=== PATIENT | female | born 2000 | race Caucasian/White ===

== ENCOUNTER 2019-09-17 19:25 | Emergency (ER) | payer OTHER, SELFPAY ==
--- NOTE | 2019-09-17 19:36 | DI.US.S_ITS ---
PROCEDURE: US OB >= 14 WEEKS FETUS INDICATIONS: 19 weeks EGA with bleeding and cramping OUTSIDE/PRIOR DATING DATA: Last menstrual period (LMP): 05/02/19. LMP-based estimated date of delivery (BERNIE): 02/06/20. First dating scan (date and location): Not available. Estimated date of delivery (BERNIE) from first dating scan: Not available. TECHNIQUE: Real-time scanning was performed of the fetus, with image documentation and biometric measurements. Endovaginal scanning: Deferred COMPARISON: None. FINDINGS: General: A single living intrauterine gestation is present. Presentation: Vertex. Placenta: Placental position is anterior, without previa. No evidence for abruption. Amniotic fluid index: Subjectively normal. heart rate: 141 beats per minute. Maternal cervical canal: 2.8 cm long. Normal lower limit is 2.5 cm. Limited images of the maternal kidneys appear normal without significant hydronephrosis or perinephric fluid. Maternal adnexa is normal without obvious mass or fluid. IMPRESSION: 1. Single living intrauterine . 2. Closed cervix within normal limits for length. 3. Anterior placenta without previa or abruption. Dictated by: Hanny Araya M.D. on 09/17/2019 at 21:16 Approved by: Hanny Araya M.D. on 09/17/2019 at 21:21
[2019-09-17 19:40] VITALS: BP 132/86; PULSE 89; RESP 14; TEMP 36.7; O2SAT 100; BMI 22.3
--- NOTE | 2019-09-17 19:58 | ED_ITS ---
HPI - General Adult General Chief complaint: OB/Uterine Contractions Stated complaint: almost 20 weeks , spotting, cramping Time Seen by Provider: 09/17/19 19:35 Source: patient Mode of arrival: Ambulatory Limitations: no limitations History of Present Illness HPI narrative: 19-year-old at approximately 20 weeks EGA here for evaluation of cramping lower back pain. Denies any vaginal bleeding. Has a confirmed intrauterine . States the symptoms have been going on for the past several weeks adjust worsening over the past day or so. Has not tried anything for the symptoms prior to arrival Related Data Allergies Allergy/AdvReac Type Severity Reaction Status Date / Time amoxicillin [From Augmentin] Allergy Verified 09/17/19 19:40 clavulanic acid Allergy Verified 09/17/19 19:40 [From Augmentin] Review of Systems Constitutional Constitutional: Denies fever(s) Cardiovascular Cardiovascular: Denies chest pain and Denies dyspnea Respiratory Respiratory: Denies dyspnea Gastrointestinal Gastrointestinal: Reports cramping Genitourinary Genitourinary: Denies dysuria and Denies pelvic pain Musculoskeletal Musculoskeletal: Reports back pain Integumentary/Breasts Skin/Breast: Denies lesions and Denies rash Neurologic Neurologic: Denies behavioral changes Psychiatric Psychiatric: Denies behavioral changes Hematologic/Lymphatic Hematologic/Lymphatic: Denies easy bleeding and Denies easy bruising Patient History Medical History Healthy adult (Acute) Social History Smoking Status: Unknown if ever smoked Smoking Status: Unknown if ever smoked alcohol intake frequency: other Substance Use Type: does not use Exam Initial Vital Signs Initial Vital Signs: Vital Signs Temperature 98.0 F 09/17/19 19:40 Pulse Rate 89 09/17/19 19:40 Respiratory Rate 14 09/17/19 19:40 Blood Pressure 132/86 09/17/19 19:40 Pulse Oximetry 100 09/17/19 19:40 Const General: cooperative, healthy appearing, comfortable and well developed Resp Effort & Inspection: normal respiratory effort Cardio Rate: regular rate Skin Lesions: no lesions Rashes: no rashes Neuro General: alert and awake Cognition: normal cognition Speech: speech normal Extrem General: normal to inspection Psych Appearance: grossly normal and well kempt Course Orders Ordered: ED Orders 09/17/19 19:36 US OB limited Stat 09/17/19 20:38 ABO RH Type Stat Basic Metabolic Panel Stat Complete Blood Count AUTO DIFF Stat Vital Signs Vital signs: Vital Signs - 8 hr 09/17/19 19:40 09/17/19 21:47 Temperature 98.0 F Pulse Rate 89 72 Respiratory Rate 14 Blood Pressure 132/86 99/60 Pulse Oximetry 100 100 Medical Decision Making Lab Data Lab results reviewed: Yes I reviewed the patient's lab results. Result diagrams: 09/17/19 20:38 09/17/19 20:38 Labs: Lab Results 09/17/19 09/17/19 09/17/19 Range/Units 20:38 20:38 20:38 WBC 9.6 (4.5-11.0) X10^3/uL RBC 4.03 (4.0-5.2) X10^6/uL Hgb 12.2 (12.0-16.0) g/dL Hct 34.7 L (36-46) % MCV 86.0 (80-100) fL MCH 30.4 (26-34) PG MCHC 35.3 (30-36) % RDW 13.4 (11.6-14.8) % Plt Count 188 (150-400) X10^3/uL Neut % (Auto) 68.0 (50-75) % Lymph % (Auto) 23.1 L (25-40) % [place] % (Auto) 7.4 (3-14) % Eos % (Auto) 1.2 L (2-4) % Baso % (Auto) 0.3 (0-2) % Neut # (Auto) 6600 (1173-0100) /uL Lymph # (Auto) 2200 (3320-2457) /uL [place] # (Auto) 700 (0-900) /uL Eos # (Auto) 100 (0-450) /uL Baso # (Auto) 0 (0-100) /uL Sodium 135 L (137-145) mmol/L Potassium 3.6 (3.4-5.1) mmol/L Chloride 104 (98-107) mmol/L Carbon Dioxide 24 (22-32) mmol/L BUN 14 (7-17) mg/dL Creatinine 0.60 (0.52-1.04) mg/dL Estimated GFR > 60.0 (>60) mL/min BUN/Creatinine Ratio 23.3 H (6-22) Glucose 76 (70-100) mg/dL Calcium 9.1 (8.4-10.2) mg/dL Blood Type A Positive Urine Dip Bedside Urine Glucose Negative Bedside Urine Bilirubin - Negative Bedside Urine Ketone - Negative Urine Specific [place] 1.015 Bedside Urine Occult Blood - Negative Bedside Urine pH 6.5 Bedside Urine Protein - Negative Bedside Urine Urobilinogen - Negative Bedside Urine Nitrite - Negative Bedside Urine Leukocytes - Negative Esterase Point of care testing: Urine Dip Bedside Urine Glucose Negative Bedside Urine Bilirubin - Negative Bedside Urine Ketone - Negative Urine Specific [place] 1.015 Bedside Urine Occult Blood - Negative Bedside Urine pH 6.5 Bedside Urine Protein - Negative Bedside Urine Urobilinogen - Negative Bedside Urine Nitrite - Negative Bedside Urine Leukocytes - Negative Esterase Imaging Data US - abdomen: Radiologist's impression: [address] [address] Ultrasound Report Signed Patient: Jerri Timmons GMR#: [id number] : 2000Acct:[id number] Age/Sex: 18 / FDate of Service: 09/17/19 Loc: ED Accession Number: [id number] Procedure: US OB limited Ordering Provider: Pablo Jones D.O. PROCEDURE: US OB >= 14 WEEKS FETUS INDICATIONS: 19 weeks EGA with bleeding and cramping OUTSIDE/PRIOR DATING DATA: Last menstrual period (LMP): 05/02/19. LMP-based estimated date of delivery (BERNIE): 02/06/20. First dating scan (date and location): Not available. Estimated date of delivery (BERNIE) from first dating scan: Not available. TECHNIQUE: Real-time scanning was performed of the fetus, with image documentation and biometric measurements. Endovaginal scanning: Deferred COMPARISON: None. FINDINGS: General: A single living intrauterine gestation is present. Presentation: Vertex. Placenta: Placental position is anterior, without previa. No evidence for abruption. Amniotic fluid index: Subjectively normal. heart rate: 141 beats per minute. Maternal cervical canal: 2.8 cm long. Normal lower limit is 2.5 cm. Limited images of the maternal kidneys appear normal without significant hydronephrosis or perinephric fluid. Maternal adnexa is normal without obvious mass or fluid. IMPRESSION: 1. Single living intrauterine . 2. Closed cervix within normal limits for length. 3. Anterior placenta without previa or abruption. Dictated by: Hanny Araya M.D. on 09/17/2019 at 21:16 Approved by: Hanny Araya M.D. on 09/17/2019 at 21:21 MDM Narrative Medical decision making narrative: Rh positive. No vaginal bleeding. Single live intrauterine noted on bedside ultrasound. Urine unremarkable. Labs unremarkable. Hold on further workup for now. I did discuss this with the patient. She was given return precautions and follow-up instructions. She expressed understanding and agreement with plan. Discharge Plan Departure Patient Disposition: Home Clinical Impression: Abdominal cramping affecting Discharge Date/Time: 09/17/19 21:47 Instructions: Common Discomforts and Bodily Changes During Activity Restrictions/Additional Instructions: Keep all of your scheduled medical appointments. Return to the emergency department for any new or worsening symptoms
[2019-09-17 20:50] LABS: Add Manual Diff / Slide Review NO; Basophils Absolute Auto 0 /uL (0-100); Basophils Percent Auto 0.3 % (0-2); Eosinophils Absolute Auto 100 /uL (0-450); Eosinophils Percent Auto 1.2 % (2-4); Hematocrit 34.7 % (36-46); Hemoglobin 12.2 g/dL (12.0-16.0); Lymphocytes Absolute Auto 2200 /uL (1100-4500); Lymphocytes Percent Auto 23.1 % (25-40); Mean Corpuscular HGB Conc 35.3 % (30-36); Mean Corpuscular Hemoglobin 30.4 PG (26-34); Monocytes Absolute Auto 700 /uL (0-900); Monocytes Percent Auto 7.4 % (3-14); Neutrophils Absolute Auto 6600 /uL (1500-7000); Platelet Count 188 X10^3/uL (150-400); Red Blood Cell Count 4.03 X10^6/uL (4.0-5.2); Red Cell Distribution Width 13.4 % (11.6-14.8); White Blood Cell Count 9.6 X10^3/uL (4.5-11.0)
[2019-09-17 21:02] LABS: BUN Creatinine Ratio 23.3 (6-22); Blood Urea Nitrogen 14 mg/dL (7-17); Calcium 9.1 mg/dL (8.4-10.2); Carbon Dioxide 24 mmol/L (22-32); Chloride 104 mmol/L (98-107); Estimated Glomerular Filt Rate > 60.0 mL/min (>60); Glucose 76 mg/dL (70-100); HEMOLYSIS < 15 (0-50); Potassium 3.6 mmol/L (3.4-5.1); Sodium 135 mmol/L (137-145)
[2019-09-17 21:47] VITALS: BP 99/60; PULSE 72; O2SAT 100
== END 2019-09-17 21:47 | disposition home or self-care (01) ==
PROVIDERS: Emergency Provider Emergency Medicine
DX: O26.892 Other specified pregnancy related conditions, second trimester (principal); R10.9 Unspecified abdominal pain; M54.5 Low back pain; Z3A.19 19 weeks gestation of pregnancy
CPT/HCPCS: 36415; 76815; 80048; 81003; 85025; 86900; 86901; 99284

== ENCOUNTER 2019-10-28 10:57 | Emergency (ER) | payer OTHER, SELFPAY ==
[2019-10-28 11:11] VITALS: BP 104/65; PULSE 89; RESP 16; TEMP 36.7; O2SAT 100; BMI 23.2
[2019-10-28 11:24] VITALS: BP 103/62; PULSE 81; RESP 16; O2SAT 99
[2019-10-28] MEDS: SODIUM CHLORIDE 0.9% 1,000 ML 1000 ML IV (11:29)
[2019-10-28 11:33] LABS: Alanine Aminotransferase 15 IU/L (<35); Albumin 3.4 g/dL (3.5-5.0); Albumin Globulin Ratio 1.2 (1.0-2.8); Alkaline Phosphatase 63 U/L (38-126); Aspartate Aminotransferase 23 IU/L (14-36); BUN Creatinine Ratio 18.3 (6-22); Bilirubin Total 0.2 mg/dL (0.2-1.3); Blood Urea Nitrogen 11 mg/dL (7-17); Calcium 9.2 mg/dL (8.4-10.2); Carbon Dioxide 21 mmol/L (22-32); Chloride 109 mmol/L (98-107); Estimated Glomerular Filt Rate > 60.0 mL/min (>60); Globulin 2.8 g/dL (1.7-4.1); Glucose 71 mg/dL (70-100); HEMOLYSIS 22 (0-50); Potassium 3.7 mmol/L (3.4-5.1); Sodium 137 mmol/L (137-145); Total Protein 6.2 g/dL (6.3-8.2)
[2019-10-28 11:37] LABS: Add Manual Diff / Slide Review NO; Basophils Absolute Auto 0 /uL (0-100); Basophils Percent Auto 0.2 % (0-2); Eosinophils Absolute Auto 100 /uL (0-450); Eosinophils Percent Auto 0.6 % (2-4); Hematocrit 32.8 % (36-46); Hemoglobin 11.9 g/dL (12.0-16.0); Lymphocytes Absolute Auto 1400 /uL (1100-4500); Mean Corpuscular HGB Conc 36.2 % (30-36); Mean Corpuscular Hemoglobin 31.6 PG (26-34); Mean Corpuscular Volume 87.1 fL (80-100); Monocytes Absolute Auto 500 /uL (0-900); Monocytes Percent Auto 5.8 % (3-14); Neutrophils Absolute Auto 6800 /uL (1500-7000); Neutrophils Percent Auto 77.4 % (50-75); Platelet Count 180 X10^3/uL (150-400); Red Blood Cell Count 3.76 X10^6/uL (4.0-5.2); Red Cell Distribution Width 13.6 % (11.6-14.8); White Blood Cell Count 8.8 X10^3/uL (4.5-11.0)
--- NOTE | 2019-10-28 11:50 | ED_ITS ---
HPI - Syncope General Chief Complaint: Syncope Stated Complaint: dizzy and fainted Time Seen by Provider: 10/28/19 11:44 Source: patient Mode of arrival: Family Vehicle Limitations: no limitations History of Present Illness HPI narrative: Patient is a 19-year-old female currently 26 weeks presenting after a near syncopal episode. 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 She had no chest pain or heart palpitations. No weakness numbness or tingling. He denies any abdominal pain vaginal bleeding shortness breath. She says that she has had at least 3 bottles of water today. Related Data Home Medications Medication Instructions Recorded Confirmed PNV cmb#95-ferrous fumarate-FA 1 tab PO DAILY 10/28/19 10/28/19 [] Allergies Allergy/AdvReac Type Severity Reaction Status Date / Time amoxicillin [From Augmentin] Allergy Verified 10/28/19 11:14 clavulanic acid Allergy Verified 10/28/19 11:14 [From Augmentin] Review of Systems Review of Systems ROS Unobtainable: All systems reviewed & are unremarkable except as noted in HPI and below Constitutional Constitutional: Denies chills, Denies fever(s), Denies lethargy and Denies weakness Eyes Eyes: Denies change in vision, Denies eye discharge, Denies irritation and Denies loss of vision ENT Ears, Nose, Mouth, and Throat: Denies change in voice, Denies neck pain and Denies sore throat Cardiovascular Cardiovascular: Denies chest pain, Denies diaphoresis, Reports syncope, Denies irregular heart rhythm, Reports lightheadedness, Denies dyspnea and Denies dyspnea on exertion Respiratory Respiratory: Denies cough, Denies dyspnea, Denies dyspnea on exertion and Denies wheezing Gastrointestinal Gastrointestinal: Denies abdominal pain, Denies change in bowel habits, Denies diarrhea, Denies nausea and Denies vomiting Genitourinary Genitourinary: Denies hematuria, Denies flank pain, Denies urinary incontinence and Denies urinary urgency Musculoskeletal Musculoskeletal: Denies neck pain Integumentary/Breasts Skin/Breast: Denies pruritus, Denies erythema, Denies rash and Denies wounds Neurologic Neurologic: Reports syncope, Denies loss of vision and Denies weakness Allergic/Immunologic Allergic/Immunologic: Denies wheezing Patient History Medical History Healthy adult (Acute) Social History Smoking Status: Former smoker Smoking Status: Former smoker alcohol intake frequency: other Substance Use Type: does not use Exam Initial Vital Signs Initial Vital Signs: Vital Signs Temperature 98.1 F 10/28/19 11:11 Pulse Rate 89 10/28/19 11:11 Respiratory Rate 16 10/28/19 11:11 Blood Pressure 104/65 10/28/19 11:11 Pulse Oximetry 100 10/28/19 11:11 GENERAL: Well-appearing, well-nourished and in no acute distress. HEENT: Head atraumatic,EOMI, pupils reactive PHARYNX: No erythema, no tonsillar exudate, no cervical lymphadenopathy CARDIOVASCULAR: Regular rate and rhythm without murmurs, rubs or gallops. RESPIRATORY: Breath sounds equal bilaterally, no wheezes rales or rhonchi. ABDOMEN: Soft, gravid nontender EXTREMITIES: Normal range of motion, no clubbing or edema. Neurovascularly intact NEUROLOGICAL: Alert and oriented x4.Normal gait and speech. Cranial nerves II through XII grossly intact. Brass Cutter strength equal bilaterally lower extremity strength equal SKIN: Warm, dry, no laceration, no petechiae, no rashes or lesions. Course Orders Ordered: ED Orders 10/28/19 11:15 Complete Blood Count AUTO DIFF Stat Comprehensive Metabolic Panel Stat 10/28/19 11:22 EKG-12 Lead Stat Discontinued Medications Sodium Chloride (Normal Saline 0.9%) 1,000 mls @ 1,000 mls/hr IV BOLUS ONE Stop: 10/28/19 12:23 Last Infusion: 10/28/19 12:18 Dose: 0 mls/hr Documented by: Admin: 10/28/19 11:29 Dose: 1,000 mls/hr Documented by: BEA Vital Signs Vital signs: Vital Signs - 8 hr 10/28/19 11:11 10/28/19 11:24 10/28/19 12:11 Temperature 98.1 F Pulse Rate 89 81 80 Respiratory Rate 16 16 12 Blood Pressure 104/65 Blood Pressure [Left Arm] 103/62 100/69 Pulse Oximetry 100 99 100 10/28/19 12:30 Temperature Pulse Rate 90 Respiratory Rate 23 Blood Pressure Blood Pressure [Left Arm] 103/66 Pulse Oximetry 100 MDM - Syncope Lab Data Attestation: I reviewed the patient's lab results. Result diagrams: 10/28/19 11:15 10/28/19 11:15 Labs: Lab Results 10/28/19 10/28/19 10/28/19 Range/Units 11:15 11:15 11:15 WBC 8.8 (4.5-11.0) X10^3/uL RBC 3.76 L (4.0-5.2) X10^6/uL Hgb 11.9 L (12.0-16.0) g/dL Hct 32.8 L (36-46) % MCV 87.1 (80-100) fL MCH 31.6 (26-34) PG MCHC 36.2 H (30-36) % RDW 13.6 (11.6-14.8) % Plt Count 180 (150-400) X10^3/uL Neut % (Auto) 77.4 H (50-75) % Lymph % (Auto) 16.0 L (25-40) % [place] % (Auto) 5.8 (3-14) % Eos % (Auto) 0.6 L (2-4) % Baso % (Auto) 0.2 (0-2) % Neut # (Auto) 6800 (0667-1968) /uL Lymph # (Auto) 1400 (0462-7692) /uL [place] # (Auto) 500 (0-900) /uL Eos # (Auto) 100 (0-450) /uL Baso # (Auto) 0 (0-100) /uL PT Cancelled INR Cancelled APTT Cancelled Sodium 137 (137-145) mmol/L Potassium 3.7 (3.4-5.1) mmol/L Chloride 109 H (98-107) mmol/L Carbon Dioxide 21 L (22-32) mmol/L BUN 11 (7-17) mg/dL Creatinine 0.60 (0.52-1.04) mg/dL Estimated GFR > 60.0 (>60) mL/min BUN/Creatinine Ratio 18.3 (6-22) Glucose 71 (70-100) mg/dL Calcium 9.2 (8.4-10.2) mg/dL Total Bilirubin 0.2 (0.2-1.3) mg/dL AST 23 (14-36) IU/L ALT 15 (<35) IU/L Alkaline Phosphatase 63 (38-126) U/L Total Creatine Kinase Cancelled CK-MB (CK-2) Cancelled CK-MB (CK-2) Rel Index Cancelled Troponin I Cancelled Total Protein 6.2 L (6.3-8.2) g/dL Albumin 3.4 L (3.5-5.0) g/dL Globulin 2.8 (1.7-4.1) g/dL Albumin/Globulin Ratio 1.2 (1.0-2.8) Lipase Cancelled Urine Dip Bedside Urine Glucose Negative Bedside Urine Bilirubin - Negative Bedside Urine Ketone - Negative Urine Specific [place] 1.020 Bedside Urine Occult Blood - Negative Bedside Urine pH 6.0 Bedside Urine Protein - Negative Bedside Urine Urobilinogen - Negative Bedside Urine Nitrite - Negative Bedside Urine Leukocytes - Negative Esterase ECG Data Attestation: I personally reviewed and interpreted this ECG as follows: Prior ECG tracings: not available for review Interpretation: Normal sinus rhythm rate 81 p.r. interval 176 QRS [address] changes or T-wave inversions no priors to compare. MDM Narrative Medical decision making narrative: Patient ambulatory to the restroom asymptomatic at this time no sign of UTI blood work overall reassuring heart tones within normal limits. Discharge Plan Departure Patient Disposition: Home Clinical Impression: Vasovagal syncope Discharge Date/Time: 10/28/19 12:55 Instructions: DI for Syncope in Adults (Fainting) Activity Restrictions/Additional Instructions: *You have been diagnosed with fainting *What to do: At this time increase fluid intake it is important while to drink plenty of water. No sign of infection work overall reassuring. *Continue to take medications as directed *Follow up with your primary care provider in 2-3 days *Return to ER if you should have increased abdominal pain vaginal bleeding, recurrent episodes of passing out or any new, worsening or concerning symptoms Prescriptions: No Action PNV cmb#95-ferrous fumarate-FA [] 28 mg iron- 800 mcg tablet 1 tab PO DAILY RF: 0 Referrals: [employer] [facility] [Provider Group]
[2019-10-28 12:11] VITALS: BP 100/69; PULSE 80; RESP 12; O2SAT 100
[2019-10-28 12:30] VITALS: BP 103/66; PULSE 90; RESP 23; O2SAT 100
== END 2019-10-28 12:55 | disposition home or self-care (01) ==
PROVIDERS: Emergency Provider Emergency Medicine
DX: R55 Syncope and collapse (principal); R07.9 Chest pain, unspecified
CPT/HCPCS: 36415; 80053; 81003; 85025; 93005; 93010; 96360; 99284

== ENCOUNTER 2020-06-13 19:19 | Emergency (ER) | payer OTHER, SELFPAY ==
[2020-06-13 19:20] VITALS: BP 136/88; PULSE 74; RESP 18; TEMP 36.7; O2SAT 99
[2020-06-13 19:38] LABS: RBC Urine None Seen (0-5/HPF)
[2020-06-13 19:40] LABS: Appearance Urine UA CLEAR
--- NOTE | 2020-06-13 19:40 | ED_ITS ---
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 Patient reports she had urinary symptoms such as urgency but difficulty initiating urination about a week ago and had treated with increase in oral hydration to flush out infection and today she has bilateral low back pain. Patient reports it feels different from musculoskeletal back pain and describes as my kidneys are tightening up. Patient denies pain at this time but when she experiences it goes up to 9/10 and she is in tears. Patient denies fever, chills, nausea or vomiting, or suprapubic pain. She delivered her baby on 01/26/20 and she had so far 3 UTIs since then and was on antibiotic medications each time but is not able to recall the medication names. According to EHR the patient was treated with Macrobid each time and last one was Rx'ed in 04/28/20. Reports UTI symptoms improved on the 2nd or 3rd day of antibiotic medication use. Patient denies history of kidney stones. LMP 05/30/20. Related Data Previous Rx's Medication Instructions Recorded cephalexin [Keflex] 500 mg PO BID 7 Days #14 cap 06/13/20 Allergies Allergy/AdvReac Type Severity Reaction Status Date / Time amoxicillin [From Augmentin] Allergy rash in Verified 06/13/20 20:35 childhood clavulanic acid Allergy Verified 10/28/19 11:14 [From Augmentin] Review of Systems <YVES Sanders - Last Filed: 06/13/20 21:08> Review of Systems Narrative: General: Denies fever, chills, fatigue, malaise, sweats. HEENT: Denies sinus pain, ear pain, sore throat, difficulty swallowing, dizziness. Respiratory: Denies dyspnea, cough, wheezing, hemoptysis, sputum. Cardiovascular: Denies chest pain, palpitations, orthopnea, edema. Gastrointestinal: Denies nausea, vomiting, abdominal pain, diarrhea, constipation, melena. : See HPI Musculoskeletal: See HPI Skin: Denies rash, skin lesions, or other. Neurologic: Denies weakness, headache, numbness, change in speech, confusion, seizures, incoordination. Psychiatric: No concerning psychosocial issues. 12-point review of systems is negative except for those stated above. Patient History <YVES Sanders - Last Filed: 06/13/20 21:08> Medical History (Updated 06/13/20 @ 20:34 by YVES Sanders) UTI (urinary tract infection) (Acute) Surgical History (Updated 06/13/20 @ 19:49 by YVES Sanders) History of kidney surgery (Acute) alcohol intake frequency: 0-2 drinks per day Substance Use Type: does not use Exam <YVES Sanders - Last Filed: 06/13/20 21:08> Narrative Exam Narrative: GEN: Alert, oriented x 3, well appearing and nourished, and in no acute distress. Head: Normal cephalic, atraumatic. No scalp or temporal tenderness, palpable mass or rash. EYES: Pupils are equal, round, and reactive to light and accommodation. Extraocular muscles are intact bilaterally. There is no subconjunctival hemorrhage, exudate and sclera non-icteric. ENT: Hearing grossly intact. Nose without bleeding, purulent discharge or deviation. Airway patent. Neck: Trachea in midline. No JVD, non-tender without lymphadenopathy. No masses or thyroid megaly. Supple, non-tender and no meningeal signs. CARDIAC: Normal regular rate and rhythm without murmurs, gallops, or rubs. No chest wall tenderness. No peripheral edema, cyanosis or pallor. Capillary refill is less than 2 seconds. RESPIRATORY: Lungs are clear to auscultate bilaterally. No cough, wheezes, rales, or rhonchi. No stridor, respiratory distress, increase work of breathing, or accessary muscle used. ABD: Abdomen soft, nontender and non-distended. No guarding or rebound tenderness to palpate. Bowel sounds are normal in all 4 quadrants. There is no palpable masses or organomegaly. EXT: Full painless ROM of all extremities with no loss of sensation, strength, effusion or edema. SKIN: Warm, dry, normal color for patient. No erythema, lesions or rash over visible areas. BACK: Nontender without deformity or crepitance. No flank tenderness. NEUROLOGICAL: Alert and oriented to place, time and person. Sensation and motor function intact bilaterally. No facial droops, dysphasia. PSYCHIATRIC: Good judgement and reason, without hallucinations, abnormal affect or abnormal behaviors during the examination. Patient is not suicidal. Initial Vital Signs Initial Vital Signs: Vital Signs Temperature 98.1 F 06/13/20 19:20 Pulse Rate 74 06/13/20 19:20 Respiratory Rate 18 06/13/20 19:20 Blood Pressure 136/88 06/13/20 19:20 Pulse Oximetry 99 06/13/20 19:20 <Fam Mendes DO - Last Filed: 06/14/20 01:15> Initial Vital Signs Initial Vital Signs: Vital Signs Temperature 98.1 F 06/13/20 19:20 Pulse Rate 74 06/13/20 19:20 Respiratory Rate 18 06/13/20 19:20 Blood Pressure 136/88 06/13/20 19:20 Pulse Oximetry 99 06/13/20 19:20 Scores <YVES Sanders - Last Filed: 06/13/20 21:08> GCS [place] coma scale eye opening: Spontaneous [place] coma scale verbal response: Orientated [place] coma scale motor response: [place] [place] [facility] coma scale total score: 15 qSOFA Altered Mental Status (GCS <15): No Respiratory rate greater than/equal to 22: No Systolic blood pressure less than or equal to 100: No qSOFA Total: 0 0-1 Not High Risk 1-3 High risk Course <YVES Sanders - Last Filed: 06/13/20 21:08> Orders Ordered: ED Orders 06/13/20 19:30 Urinalysis and Microscopic Stat Urine Culture Stat 06/13/20 19:48 Basic Metabolic Panel Stat Complete Blood Count AUTO DIFF Stat Lactate (Lactic Acid) Stat Discontinued Medications Acetaminophen (Tylenol) 650 mg PO NOW ONE Stop: 06/13/20 19:51 Last Admin: 06/13/20 20:23 Dose: 650 mg Documented by: BEA Cefazolin Sodium (Keflex 250 Mg Prepack) 1 bottle MISC SEEINSTR ONE Stop: 06/13/20 20:35 Cephalexin HCl (Keflex) 500 mg PO NOW ONE Stop: 06/13/20 20:25 Ketorolac Tromethamine (Toradol) 30 mg IM NOW ONE Stop: 06/13/20 19:51 Last Admin: 06/13/20 20:22 Dose: 30 mg Documented by: BEA Vital Signs Vital signs: Vital Signs - 8 hr 06/13/20 19:20 06/13/20 20:45 Temperature 98.1 F Pulse Rate 74 61 Respiratory Rate 18 Blood Pressure 136/88 115/73 Pulse Oximetry 99 97 <Fam Mendes DO - Last Filed: 06/14/20 01:15> Orders Ordered: ED Orders 06/13/20 19:30 Urinalysis and Microscopic Stat Urine Culture Stat 06/13/20 19:48 Basic Metabolic Panel Stat Complete Blood Count AUTO DIFF Stat Lactate (Lactic Acid) Stat Discontinued Medications Acetaminophen (Tylenol) 650 mg PO NOW ONE Stop: 06/13/20 19:51 Last Admin: 06/13/20 20:23 Dose: 650 mg Documented by: BEA Cefazolin Sodium (Keflex 250 Mg Prepack) 1 bottle MISC SEEINSTR ONE Stop: 06/13/20 20:35 Cephalexin HCl (Keflex) 500 mg PO NOW ONE Stop: 06/13/20 20:25 Ketorolac Tromethamine (Toradol) 30 mg IM NOW ONE Stop: 06/13/20 19:51 Last Admin: 06/13/20 20:22 Dose: 30 mg Documented by: BEA Vital Signs Vital signs: Vital Signs - 8 hr 06/13/20 19:20 06/13/20 20:45 Temperature 98.1 F Pulse Rate 74 61 Respiratory Rate 18 Blood Pressure 136/88 115/73 Pulse Oximetry 99 97 MDM - Female Genitourinary <YVES Sanders - Last Filed: 06/13/20 21:08> Differential Diagnosis Differential diagnosis: Likely urinary tract infection, cystitis and other (Pyelonephritis, back pain) Medical Records Attestation: I reviewed the patient's medical records. Lab Data Attestation: I reviewed the patient's lab results. Result diagrams: 06/13/20 19:48 06/13/20 19:48 Labs: Lab Results 06/13/20 06/13/20 06/13/20 Range/Units 19:30 19:48 19:48 WBC 8.7 (4.5-11.0) X10^3/uL RBC 4.58 (4.0-5.2) X10^6/uL Hgb 13.2 (12.0-16.0) g/dL Hct 38.7 (36-46) % MCV 84.4 (80-100) fL MCH 28.7 (26-34) PG MCHC 34.1 (30-36) % RDW 13.1 (11.6-14.8) % Plt Count 215 (150-400) X10^3/uL Neut % (Auto) 60.5 (50-75) % Lymph % (Auto) 30.0 (25-40) % [place] % (Auto) 6.5 (3-14) % Eos % (Auto) 1.5 L (2-4) % Baso % (Auto) 1.5 (0-2) % Neut # (Auto) 5300 (3935-7715) /uL Lymph # (Auto) 2600 (2372-5592) /uL [place] # (Auto) 600 (0-900) /uL Eos # (Auto) 100 (0-450) /uL Baso # (Auto) 100 (0-100) /uL Sodium 138 (137-145) mmol/L Potassium 3.8 (3.4-5.1) mmol/L Chloride 106 (98-107) mmol/L Carbon Dioxide 24 (22-32) mmol/L BUN 17 (7-17) mg/dL Creatinine 0.91 (0.52-1.04) mg/dL Estimated GFR > 60.0 (>60) mL/min BUN/Creatinine Ratio 18.7 (6-22) Glucose 105 H (70-100) mg/dL Lactate (0.7-2.1) mmol/L Calcium 9.2 (8.4-10.2) mg/dL Urine Color [place] Urine Appearance Clear Urine pH Not Reportable Ur Specific [place] Not Reportable Urine Protein Not Reportable Urine Glucose (UA) Not Reportable Urine Ketones Not Reportable Urine Occult Blood Not Reportable Urine Nitrate Not Reportable Urine Bilirubin Not Reportable Urine Urobilinogen Not Reportable Ur Leukocyte Esterase Not Reportable Urine RBC None seen (0-5/HPF) Urine WBC 5-10/hpf H (0-5/HPF) Ur Squamous Epith Cells 0-1 /hpf (0-5/HPF) Urine Bacteria Many (>30) H (None) Ur Culture Indicated? Specimen cultured 06/13/20 Range/Units 19:48 WBC (4.5-11.0) X10^3/uL RBC (4.0-5.2) X10^6/uL Hgb (12.0-16.0) g/dL Hct (36-46) % MCV (80-100) fL MCH (26-34) PG MCHC (30-36) % RDW (11.6-14.8) % Plt Count (150-400) X10^3/uL Neut % (Auto) (50-75) % Lymph % (Auto) (25-40) % [place] % (Auto) (3-14) % Eos % (Auto) (2-4) % Baso % (Auto) (0-2) % Neut # (Auto) (3314-9849) /uL Lymph # (Auto) (2065-0432) /uL [place] # (Auto) (0-900) /uL Eos # (Auto) (0-450) /uL Baso # (Auto) (0-100) /uL Sodium (137-145) mmol/L Potassium (3.4-5.1) mmol/L Chloride (98-107) mmol/L Carbon Dioxide (22-32) mmol/L BUN (7-17) mg/dL Creatinine (0.52-1.04) mg/dL Estimated GFR (>60) mL/min BUN/Creatinine Ratio (6-22) Glucose (70-100) mg/dL Lactate 0.8 (0.7-2.1) mmol/L Calcium (8.4-10.2) mg/dL Urine Color Urine Appearance Urine pH Ur Specific [place] Urine Protein Urine Glucose (UA) Urine Ketones Urine Occult Blood Urine Nitrate Urine Bilirubin Urine Urobilinogen Ur Leukocyte Esterase Urine RBC (0-5/HPF) Urine WBC (0-5/HPF) Ur Squamous Epith Cells (0-5/HPF) Urine Bacteria (None) Ur Culture Indicated? Point of Care Testing Test Results Negative MDM Narrative Medical decision making narrative: This is a 19-year-old female who presents to ED with frequent UTI and had surgery to correct ureter in childhood. This is her 4th UTI since January and she was treated with Macrobid 3 times in the past. Patient reports bilateral low back pain which started today with urinary symptoms for a week. No constitutional symptoms or nausea vomiting. UA test shows positive for urine WBC 5-10 hpf and many bacteria and urine culture is pending. Given patient's history proceed with lab tests. No leukocytosis. Normal lactate. Normal kidney function test. Physical exam is not consistent with pyelonephritis and patient is nontoxic appearing. Within normal limits vital signs and afebrile. Patient was treated with Tylenol, IM Toradol and attempted to medicate patient w ith first dose of Keflex 500mg but due to Pyxis problem this was unable. She advised to start antibiotic medication from tomorrow morning and discharged with b.i.d. course for 7 course Keflex.. Patient advised to follow-up with primary care physician to follow-up on her frequent UTI and possible a referral to urologist or consider for suppressive treatment. Return precautions were discussed with patient and patient verbalized understanding in agreement with treatment plan. <Fam Mendes, DO - Last Filed: 06/14/20 01:15> Lab Data Labs: Lab Results 06/13/20 06/13/20 06/13/20 Range/Units 19:30 19:48 19:48 WBC 8.7 (4.5-11.0) X10^3/uL RBC 4.58 (4.0-5.2) X10^6/uL Hgb 13.2 (12.0-16.0) g/dL Hct 38.7 (36-46) % MCV 84.4 (80-100) fL MCH 28.7 (26-34) PG MCHC 34.1 (30-36) % RDW 13.1 (11.6-14.8) % Plt Count 215 (150-400) X10^3/uL Neut % (Auto) 60.5 (50-75) % Lymph % (Auto) 30.0 (25-40) % [place] % (Auto) 6.5 (3-14) % Eos % (Auto) 1.5 L (2-4) % Baso % (Auto) 1.5 (0-2) % Neut # (Auto) 5300 (0865-4399) /uL Lymph # (Auto) 2600 (2034-8076) /uL [place] # (Auto) 600 (0-900) /uL Eos # (Auto) 100 (0-450) /uL Baso # (Auto) 100 (0-100) /uL Sodium 138 (137-145) mmol/L Potassium 3.8 (3.4-5.1) mmol/L Chloride 106 (98-107) mmol/L Carbon Dioxide 24 (22-32) mmol/L BUN 17 (7-17) mg/dL Creatinine 0.91 (0.52-1.04) mg/dL Estimated GFR > 60.0 (>60) mL/min BUN/Creatinine Ratio 18.7 (6-22) Glucose 105 H (70-100) mg/dL Lactate (0.7-2.1) mmol/L Calcium 9.2 (8.4-10.2) mg/dL Urine Color [place] Urine Appearance Clear Urine pH Not Reportable Ur Specific [place] Not Reportable Urine Protein Not Reportable Urine Glucose (UA) Not Reportable Urine Ketones Not Reportable Urine Occult Blood Not Reportable Urine Nitrate Not Reportable Urine Bilirubin Not Reportable Urine Urobilinogen Not Reportable Ur Leukocyte Esterase Not Reportable Urine RBC None seen (0-5/HPF) Urine WBC 5-10/hpf H (0-5/HPF) Ur Squamous Epith Cells 0-1 /hpf (0-5/HPF) Urine Bacteria Many (>30) H (None) Ur Culture Indicated? Specimen cultured 06/13/20 Range/Units 19:48 WBC (4.5-11.0) X10^3/uL RBC (4.0-5.2) X10^6/uL Hgb (12.0-16.0) g/dL Hct (36-46) % MCV (80-100) fL MCH (26-34) PG MCHC (30-36) % RDW (11.6-14.8) % Plt Count (150-400) X10^3/uL Neut % (Auto) (50-75) % Lymph % (Auto) (25-40) % [place] % (Auto) (3-14) % Eos % (Auto) (2-4) % Baso % (Auto) (0-2) % Neut # (Auto) (6222-4981) /uL Lymph # (Auto) (8339-2815) /uL [place] # (Auto) (0-900) /uL Eos # (Auto) (0-450) /uL Baso # (Auto) (0-100) /uL Sodium (137-145) mmol/L Potassium (3.4-5.1) mmol/L Chloride (98-107) mmol/L Carbon Dioxide (22-32) mmol/L BUN (7-17) mg/dL Creatinine (0.52-1.04) mg/dL Estimated GFR (>60) mL/min BUN/Creatinine Ratio (6-22) Glucose (70-100) mg/dL Lactate 0.8 (0.7-2.1) mmol/L Calcium (8.4-10.2) mg/dL Urine Color Urine Appearance Urine pH Ur Specific [place] Urine Protein Urine Glucose (UA) Urine Ketones Urine Occult Blood Urine Nitrate Urine Bilirubin Urine Urobilinogen Ur Leukocyte Esterase Urine RBC (0-5/HPF) Urine WBC (0-5/HPF) Ur Squamous Epith Cells (0-5/HPF) Urine Bacteria (None) Ur Culture Indicated? Point of Care Testing Test Results Negative Discharge Plan Departure Patient Disposition: Home Clinical Impression: Urinary tract infection Qualifiers: Urinary tract infection type: site unspecified Hematuria presence: without hematuria Qualified Code(s): N39.0 - Urinary tract infection, site not specified Back pain Qualifiers: Back pain location: low back pain Chronicity: unspecified Back pain laterality: bilateral Sciatica presence: without sciatica Qualified Code(s): M54.5 - Low back pain Discharge Date/Time: 06/13/20 21:04 Instructions: DI for Low Back Pain, DI for Urinary Tract Infection (UTI) Activity Restrictions/Additional Instructions: You have been diagnosed with [urinary tract infection and urine culture is pending. No indication for severe infection with normal white count and lactate. Normal kidney function test. You were medicated with IM Toradol and Tylenol for pain and treated with 1st dose Keflex for UTI.]. What to do: *Take your medications as directed. Please continue with Keflex twice a day for next 7 days. You will receive a phone call if you require different antibiotic medication treatment. You can take [id number] Tylenol and or Motrin as needed for discomfort. Tylenol 650-1000 mg up to 3 to 4 times a day as needed. Ibuprofen 400-600 mg up to 3 to 4 times a day as needed with food to decrease GI irritation. Medication has been transmitted to [facility]. *Follow up with your primary care provider in 2-3 days, call for an appointment. Let them know you were seen in the ED and that we asked you to be seen in [facility] up for today's visit and history of frequent UTI. *Return to ED if you have any new, worsening, or concerning symptoms, such as [chest pain, breathing difficulty, unable to tolerate fluids, fever/chills, severe flank pain, dark blood in her urine or any acute concerns]. Prescriptions: New cephalexin [Keflex] 500 mg capsule 500 mg PO BID 7 Days Qty: 14 RF: 0 Referrals: Tejal Beck ARNP [Primary Care Provider] - <Fam Mendes DO - Last Filed: 06/14/20 01:15> Cosign ED Attending Charismaature Attestation: I was immediately available in the department for consultation. This documentation has been reviewed and I agree with assessment and plan. Supervised by Fam eMndes DO
[2020-06-13 19:49] LABS: Color Urine UA ORANGE
[2020-06-13 19:50] LABS: Bacteria Urine Many (>30); Culture Indicated Urine Specimen Cultured; Squamous Epithelial Cell Urine 0-1 /HPF (0-5/HPF); WBC Urine 5-10/HPF (0-5/HPF)
[2020-06-13 19:56] LABS: Add Manual Diff / Slide Review NO; Basophils Absolute Auto 100 /uL (0-100); Basophils Percent Auto 1.5 % (0-2); Eosinophils Absolute Auto 100 /uL (0-450); Eosinophils Percent Auto 1.5 % (2-4); Hematocrit 38.7 % (36-46); Hemoglobin 13.2 g/dL (12.0-16.0); Lymphocytes Absolute Auto 2600 /uL (1100-4500); Mean Corpuscular HGB Conc 34.1 % (30-36); Mean Corpuscular Hemoglobin 28.7 PG (26-34); Mean Corpuscular Volume 84.4 fL (80-100); Monocytes Absolute Auto 600 /uL (0-900); Monocytes Percent Auto 6.5 % (3-14); Neutrophils Absolute Auto 5300 /uL (1500-7000); Neutrophils Percent Auto 60.5 % (50-75); Platelet Count 215 X10^3/uL (150-400); Red Blood Cell Count 4.58 X10^6/uL (4.0-5.2); Red Cell Distribution Width 13.1 % (11.6-14.8); White Blood Cell Count 8.7 X10^3/uL (4.5-11.0)
[2020-06-13 20:07] LABS: BUN Creatinine Ratio 18.7 (6-22); Blood Urea Nitrogen 17 mg/dL (7-17); Calcium 9.2 mg/dL (8.4-10.2); Carbon Dioxide 24 mmol/L (22-32); Chloride 106 mmol/L (98-107); Estimated Glomerular Filt Rate > 60.0 mL/min (>60); Glucose 105 mg/dL (70-100); HEMOLYSIS < 15 (0-50); Lactate (Lactic Acid) 0.8 mmol/L (0.7-2.1); Potassium 3.8 mmol/L (3.4-5.1); Sodium 138 mmol/L (137-145)
[2020-06-13] MEDS: KETOROLAC 60 MG/2 ML VIAL 30 MG IM (20:22)
[2020-06-13] MEDS: ACETAMINOPHEN 325 MG TABLET 650 MG PO (20:23)
[2020-06-13 20:45] VITALS: BP 115/73; PULSE 61; O2SAT 97
== END 2020-06-13 21:04 | disposition home or self-care (01) ==
PROVIDERS: Emergency Provider Nurse Practitioner Family; PCP Nurse Practitioner Family
DX: N39.0 Urinary tract infection, site not specified (principal); M54.5 Low back pain
CPT/HCPCS: 36415; 80048; 81001; 81025; 83605; 85025; 87077; 87086; 87186; 96372; 99283; 99284; J1885